=== PATIENT | female | born 2000 | race Caucasian/White ===

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

== ENCOUNTER 2019-10-09 13:34 | Outpatient (CLI) | payer OTHER ==
[2019-10-09 14:12] LABS: ALBUMIN 4.4 g/dL (3.2-5.5); BILIRUBIN,DIRECT 0.2 mg/dL (0.1-0.5); BILIRUBIN,TOTAL 1.2 mg/dL (0.2-1.0); TOTAL PROTEIN 7.7 g/dL (6.7-8.2)
== END 2019-10-09 13:35 | disposition home or self-care (01) ==
LOC: LAB 13:34
PROVIDERS: ATTEND Pediatrics
DX: G40.814 Lennox-Gastaut syndrome, intractable, without status epilepticus (principal)
CPT/HCPCS: 36415; 80076

== ENCOUNTER 2019-12-09 14:39 | Outpatient (CLI) | payer OTHER ==
[2019-12-09 14:56] LABS: BASOPHILS # (AUTO) 0.1 10^3/uL (0.0-0.1); BASOPHILS % (AUTO) 0.8 %; EOSINOPHILS # (AUTO) 0.3 10^3/uL (0.0-0.7); EOSINOPHILS % (AUTO) 4.5 %; LYMPHOCYTES # (AUTO) 1.9 10^3/uL (1.5-3.5); LYMPHOCYTES % (AUTO) 29.4 %; MEAN CORPUSCULAR HGB CONC 34.7 g/dL (32.0-36.0); MEAN CORPUSCULAR VOLUME 92.2 fL (81.0-99.0); MONOCYTES # (AUTO) 0.7 10^3/uL (0.0-1.0); MONOCYTES % (AUTO) 9.8 %; NEUTROPHILS # (AUTO) 3.7 10^3/uL (1.5-6.6); NEUTROPHILS % (AUTO) 55.3 %; PLT - PLATELET COUNT 206 10^3/uL (130-450); RED BLOOD COUNT 4.37 10^6/uL (4.20-5.40); RED CELL DISTRIBUTION WIDTH 12.5 % (12.0-15.0); WHITE BLOOD COUNT 6.6 x10^3/uL (4.8-10.8)
[2019-12-09 15:15] LABS: ALBUMIN 4.5 g/dL (3.2-5.5); ALBUMIN/GLOBULIN RATIO 1.6 (1.0-2.2); BILIRUBIN,TOTAL 0.7 mg/dL (0.2-1.0); CALCIUM 9.3 mg/dL (8.5-10.3); CREATININE 0.5 mg/dL (0.4-1.0); TOTAL PROTEIN 7.4 g/dL (6.7-8.2)
[2019-12-09 15:35] LABS: HCG,QUALITATIVE BLOOD NEGATIVE
== END 2019-12-09 14:40 | disposition home or self-care (01) ==
LOC: LAB 14:39
PROVIDERS: ATTEND Pediatrics
DX: G40.219 Localization-related (focal) (partial) symptomatic epilepsy and epileptic syndromes with complex partial seizures, intractable, without status epilepticus (principal)
CPT/HCPCS: 36415; 80053; 84703; 85025

== ENCOUNTER 2020-05-20 12:18 | Outpatient (CLI) | payer MEDICARE, MEDICAID ==
[2020-05-20 12:37] LABS: BASOPHILS % (AUTO) 0.7 %; EOSINOPHILS # (AUTO) 0.1 10^3/uL (0.0-0.7); EOSINOPHILS % (AUTO) 3.1 %; HGB - HEMOGLOBIN 13.7 g/dL (12.0-16.0); LYMPHOCYTES # (AUTO) 1.5 10^3/uL (1.5-3.5); LYMPHOCYTES % (AUTO) 31.8 %; MEAN CORPUSCULAR HEMOGLOBIN 32.6 pg (27.0-31.0); MEAN CORPUSCULAR HGB CONC 35.7 g/dL (32.0-36.0); MEAN CORPUSCULAR VOLUME 91.4 fL (81.0-99.0); MEAN PLATELET VOLUME 10.1 fL (7.9-10.8); MONOCYTES # (AUTO) 0.6 10^3/uL (0.0-1.0); MONOCYTES % (AUTO) 12.4 %; NEUTROPHILS # (AUTO) 2.4 10^3/uL (1.5-6.6); NEUTROPHILS % (AUTO) 51.8 %; PLT - PLATELET COUNT 169 10^3/uL (130-450); RED CELL DISTRIBUTION WIDTH 12.9 % (12.0-15.0); WHITE BLOOD COUNT 4.6 x10^3/uL (4.8-10.8)
[2020-05-20 12:54] LABS: ALBUMIN 4.3 g/dL (3.2-5.5); ALBUMIN/GLOBULIN RATIO 1.4 (1.0-2.2); BILIRUBIN,TOTAL 0.9 mg/dL (0.2-1.0); CALCIUM 9.4 mg/dL (8.5-10.3); CREATININE 0.4 mg/dL (0.4-1.0); TOTAL PROTEIN 7.3 g/dL (6.7-8.2)
== END 2020-05-20 12:19 | disposition home or self-care (01) ==
LOC: LAB 12:18
PROVIDERS: ATTEND Internal Medicine
DX: R63.0 Anorexia (principal); R40.0 Somnolence; R26.89 Other abnormalities of gait and mobility; E83.10 Disorder of iron metabolism, unspecified
CPT/HCPCS: 36415; 80053; 82607; 84443; 85025

== ENCOUNTER 2020-07-15 09:04 | Emergency (ER) | payer MEDICARE, MEDICAID ==
[2020-07-15 09:25] VITALS: BP 117/92
--- NOTE | 2020-07-15 09:38 | ED Physician Documentation ---
PD HPI HEAD INJURY - Stated complaint Stated Complaint: HEAD INJ - Chief complaint Chief Complaint: Laceration - History obtained from History obtained from: Patient - History of Present Illness Mechanism of head injury: Fell Where head injury occurred: Home Timing - onset: Today Pain level max: 0 Pain level now: 0 - Additional information Additional information: Patient is a 19-year-old female who presents to the emergency department after a fall out of bed today. She has severe mental impairment, she is accompanied by her mother. Mother states that the patient has seizures and has fallen and struck her head several times. She is acting like her normal self. Patient is chewing on a towel. Patient unable to give history. No vomiting. No changes to her medications. No recent illness Review of Systems Constitutional: denies: Fever, Chills PD PAST MEDICAL HISTORY - Past Medical History Cardiovascular: None Respiratory: None Endocrine/Autoimmune: None GI: None CELLAR HAND: None : None HEENT: None Psych: None Musculoskeletal: None Derm: None - Present Medications Home Medications: Ambulatory Orders Medication Instructions Recorded Confirmed Acetaminophen with Codeine 15 ml PO Q6H PRN #240 ml 02/05/17 [Acetaminophen-Codeine Solution] - Allergies Allergies/Adverse Reactions: Allergies Allergy/AdvReac Type Severity Reaction Status Date / Time divalproex sodium Allergy Hives Verified 07/15/20 09:24 [From Depakote] phenytoin sodium * Allergy Hives Verified 07/15/20 09:24 [From Dilantin] phenytoin sodium extended * Allergy Hives Verified 07/15/20 09:24 [From Dilantin] - Social History Does the pt smoke?: No Smoking Status: Never smoker Does the pt drink ETOH?: No Does the pt have substance abuse?: No - Immunizations Immunizations are current?: Yes - POLST Patient has POLST: No PD ED PE NORMAL - Vitals Vital signs reviewed: Yes - General General: No acute distress, Well developed/nourished, Other (Alert, at her normal baseline.) - HEENT HEENT: PERRL, EOMI, Moist mucous membranes, Other (6 cm scalp laceration. No scalp hematomas. No palpable skull fractures. Linear. Near the crown of the head) - Neck Neck: Supple, no meningeal sign - Cardiac Cardiac: RRR - Respiratory Respiratory: No respiratory distress, Clear bilaterally - Derm Derm: Warm and dry - Extremities Extremities: Normal ROM s pain - Neuro Neuro: Other (Alert, at her normal baseline) Results - Vitals Vitals: Vital Signs - 24 hr 07/15/20 09:20 Temperature 36.0 C L Heart Rate 95 Respiratory 16 Rate Blood Pressure 117/92 H O2 Saturation 95 Oxygen O2 Source Room air Procedures - Laceration (location) Scalp laceration Length in cm: 6 Wound type: Linear Neurovascular status: Sensory intact, Motor intact, Vascular intact Wound preparation: Irrigated copiously NS Skin layer closure: Lenard Other: Patient tolerated well, No complications, Neurovascular intact, Tetanus UTD PD MEDICAL DECISION MAKING - ED course Complexity details: considered differential, d/w family ED course: 19-year-old female with a scalp laceration. Has severe developmental delay. Mother states that the patient does not usually feel pain and does not require anesthetics for stapling of the scalp. Patient tolerated the stapling very well. No indication for head CT. Mother is comfortable without a head CT at this time. Warnings of infection and instructions on wound care given at bedside. Also counseled on how to minimize scarring. Mother counseled regarding signs and symptoms for which I believe and urgent re-evaluation would be necessary. Mother with good understanding of and agreement to plan and is comfortable going home at this time This document was made in part using voice recognition software. While efforts are made to proofread this document, sound alike and grammatical errors may occur. Departure - Departure Disposition: 01 Home, Self Care Clinical Impression: Scalp laceration Qualifiers: Encounter type: initial encounter Qualified Code(s): S01.01XA - Laceration without foreign body of scalp, initial encounter Condition: Good Instructions: ED Laceration Scalp Stitch Or Stap Follow-Up: Dionne Smith MD [Primary Care Provider] - Within 1 week Comments: Follow-up with her doctor in 10 to 14 days for staple removal. Return if she worsens. Keep the wound clean. Discharge Date/Time: 07/15/20 09:54
== END 2020-07-15 09:54 | disposition home or self-care (01) ==
LOC: ED 09:04
DX: S01.01XA Laceration without foreign body of scalp, initial encounter (principal); W06.XXXA Fall from bed, initial encounter; Z91.81 History of falling; R62.50 Unspecified lack of expected normal physiological development in childhood
CPT/HCPCS: 12002; 99281; 99282

== ENCOUNTER 2020-10-13 15:31 | Outpatient (CLI) | payer MEDICARE, MEDICAID ==
--- NOTE | 2020-10-13 16:40 | XRAY Report ---
PROCEDURE: Calcaneus LT INDICATIONS: ANTALGIC GAIT (NOT BEARING WF.ON HEEL) TECHNIQUE: Two views of the calcaneus were acquired. COMPARISON: None. FINDINGS: Bones: No fractures or dislocations. No suspicious bony lesions. Soft tissues: No suspicious calcifications. Achilles tendon appears normal. IMPRESSION: No trauma to the calcaneus is found. Normal alignment. Reviewed by: Roney Albert MD on 10/13/2020 4:38 PM PDT Approved by: Roney Albert MD on 10/13/2020 4:38 PM PDT Station ID: [id number]
--- NOTE | 2020-10-13 16:41 | XRAY Report ---
PROCEDURE: Ankle 3 View LT INDICATIONS: ANTALGIC GAIT (NOT BEARING WF.ON HEEL) TECHNIQUE: 3 views of the ankle were acquired. COMPARISON: Calcaneus plain film same date. FINDINGS: Bones: No fractures or dislocations. Ankle mortise is normally aligned. No suspicious bony lesions . Soft tissues: No tibiotalar joint effusion. Achilles tendon appears normal. IMPRESSION: No trauma found, source of current pain is not identified. Reviewed by: Roney Albert MD on 10/13/2020 4:39 PM PDT Approved by: Roney Albert MD on 10/13/2020 4:39 PM PDT Station ID: [id number]
== END 2020-10-13 15:32 | disposition home or self-care (01) ==
LOC: DI 15:31
PROVIDERS: ATTEND Internal Medicine
DX: R26.89 Other abnormalities of gait and mobility (principal)

== ENCOUNTER 2021-01-04 08:47 | Day surgery (SDC) | payer MEDICARE, MEDICAID ==
[2021-01-04] MEDS ORDERED: LACTATED RINGERS 1,000 ML IV ONE ×2 (09:09→11:25)
[2021-01-04] MEDS ORDERED: CEFAZOLIN SODIUM IN 0.9 % NACL 0 GM/0 ML BAG IV ONE (09:52)
--- NOTE | 2021-01-04 09:56 | ANESTHESIA ---
Pre-Anesthesia VS, & Labs - Diagnosis CP, seizure disorder, weight loss, poor nutrition - Procedure Placement of PEG tube Vital Signs: Temp Pulse Resp BP Pulse Ox 36.5 C 93 18 90/69 100 01/04/21 09:11 01/04/21 09:11 01/04/21 09:11 01/04/21 09:11 01/04/21 09:11 Height: 4 ft 10 in Weight (kg): 29 kg Body Mass Index: 13.4 BMI Classification: Underweight - NPO >8 hours - Is Patient ?: Not Applicable Home Medications and Allergies Home Medications: Ambulatory Orders Cannabidiol (Cbd) [Epidiolex] 8 mg PO BID 01/02/21 Fenfluramine HCl [Fintepla] 6 ml PO BID 01/02/21 clonazePAM [Clonazepam] 3 ml PO BID 01/02/21 Lacosamide [Vimpat] 14 ml PO BID 01/04/21 Cannabidiol (Cbd) [Epidiolex] 8 mg PO BID 01/02/21 Fenfluramine HCl [Fintepla] 6 ml PO BID 01/02/21 clonazePAM [Clonazepam] 3 ml PO BID 01/02/21 Lacosamide [Vimpat] 14 ml PO BID 01/04/21 Allergies/Adverse Reactions: Allergies Allergy/AdvReac Type Severity Reaction Status Date / Time divalproex sodium Allergy Hives Verified 07/15/20 09:24 [From Depakote] egg Allergy seizures Verified 01/02/21 13:23 milk Allergy seizures Verified 01/02/21 13:23 phenytoin sodium * Allergy Hives Verified 07/15/20 09:24 [From Dilantin] phenytoin sodium extended * Allergy Hives Verified 07/15/20 09:24 [From Dilantin] Anes History & Medical History - Anesthetic History Anesthesia Complications: reports: No previous complications - Medical History Cardiovascular: reports: None Pulmonary: reports: None Gastrointestinal: reports: None Urinary: reports: None Neuro: reports: Seizure disorder, Other (CP, Autism, non-verbal) Musculoskeletal: reports: Other (CP) Endocrine/Autoimmune: reports: None Blood Disorders: reports: None Skin: reports: None Smoking Status: Never smoker Psychosocial: reports: No issues indicated History of Cancer?: No - Surgical History Neurologic: reports: Other (vagal nerve stimulator) Exam General: Alert Dental: Other (unable to assess) Respiratory: Lungs clear, Normal breath sounds, No respiratory distress, No accessory muscle use Cardiovascular: Regular rate, Normal S1, Normal S2, No murmurs Mental/Cognitive Status: Normal for patient Plan Anesthesia Type: General, Total IV Consent for Procedure(s) Verified and Reviewed: Yes Code Status: Attempt Resuscitation ASA classification: 4-Incapacitating disease Is this case an emergency?: No
[2021-01-04] MEDS ORDERED: MORPHINE 2 MG/ML CARPUJECT IVP PRN (10:05)
[2021-01-04] MEDS ORDERED: NALOXONE 0.4 MG/ML VIAL IVP PRN (10:05)
[2021-01-04] MEDS ORDERED: fentaNYL 100 MCG/2 ML VIAL IVP PRN (10:05)
[2021-01-04] MEDS ORDERED: ATROPINE ABBOJECT 1 MG/10 ML SYRINGE IVP PRN (10:05)
[2021-01-04] MEDS ORDERED: ONDANSETRON 4 MG/2 ML VIAL IVP PRN (10:05)
[2021-01-04] MEDS ORDERED: HYDROmorphone 0.5 MG/0.5 ML SYRINGE IVP PRN (10:05)
[2021-01-04] MEDS ORDERED: ceFAZolin 1 GM VIAL ONE (10:09)
[2021-01-04] MEDS ORDERED: LIDOCAINE 2%-EPI 1:100000 20 ML MDV ONE (10:34)
[2021-01-04] MEDS ORDERED: MIDAZOLAM 2 MG/2 ML VIAL ONE (10:43)
[2021-01-04] MEDS ORDERED: LIDOCAINE 1% 50 ML MDV SUBQ ONE ×2 (10:59)
[2021-01-04] MEDS ORDERED: PROPOFOL 1000 MG/100 ML 1,000 MG/100 ML BOTTLE IV ONE (11:00)
[2021-01-04] MEDS ORDERED: LACTATED RINGERS 1,000 ML IV SCH ×2 (11:00→12:00)
[2021-01-04] MEDS ORDERED: ceFAZolin 1 GM in SODIUM CHLORIDE 0.9% MINIBAG 100 ML IV SCH (11:00)
[2021-01-04] MEDS ORDERED: CEFAZOLIN SODIUM IN 0.9 % NACL 2 GM/100 ML BAG IV ONE (11:00)
[2021-01-04] MEDS ORDERED: SODIUM CHLORIDE FLUSH 0.9% 10 ML SYRINGE IVP PRN (11:32)
--- NOTE | 2021-01-04 13:44 | Discharge Plan ---
Discharge Plan Problem Reviewed?: Yes Disposition: Home, Self Care Condition: Good Diet: Regular (she will need tube feeds to supplement her diet life long tube feeds greater than 90 days) Activity Restrictions: No Restrictions Shower Restrictions: No Health Concerns: cerebral palsy and malnutrition requiring tube feeds Plan of Treatment: peg tube placed and nutrition consult obtained Assessment: doing well after feeding tube placement Additional Instructions or Follow Up instructions: daily dressing care to tube feed site follow up [facility] in 2 weeks and as needed call with any concerns [phone] Follow-Up Care: Dietitian No Smoking: If you smoke, Please STOP! Call for help. Follow-up with: Dionne Smith MD [Primary Care Provider] - Yogesh Hare MD [Provider Admit Priv/Credential] -
--- NOTE | 2021-01-04 13:48 | DISCHARGE SUMMARY ---
"Discharge Summary Admit Date: 01/04/21 Discharge Date: 01/04/21 Discharging Provider: tino law Code Status: Attempt Resuscitation Discharge Facility Name: [facility] - DIAGNOSES Admission Diagnoses: cp and malnutrition Discharge Diagnoses with Status of Each Condition: home in stable condition - CONSULTS | PROCEDURES Consultations: nutrition Procedures: peg feeding tube placement - HOSPITAL COURSE Hospital Course: Tolerated peg tube placement well. Home after nutrition consult - ALLERGIES Allergies/Adverse Reactions: Allergies Allergy/AdvReac Type Severity Reaction Status Date / Time divalproex sodium Allergy Hives Verified 07/15/20 09:24 [From Depakote] egg Allergy seizures Verified 01/02/21 13:23 milk Allergy seizures Verified 01/02/21 13:23 phenytoin sodium * Allergy Hives Verified 07/15/20 09:24 [From Dilantin] phenytoin sodium extended * Allergy Hives Verified 07/15/20 09:24 [From Dilantin] - MEDICATIONS Home Medications: Ambulatory Orders Medication Instructions Recorded Confirmed Cannabidiol (Cbd) [Epidiolex] 8 mg PO BID 01/02/21 01/04/21 Fenfluramine HCl [Fintepla] 6 ml PO BID 01/02/21 01/04/21 clonazePAM [Clonazepam] 3 ml PO BID 01/02/21 01/04/21 Lacosamide [Vimpat] 14 ml PO BID 01/04/21 01/04/21 - PHYSICAL EXAM AT DISCHARGE General Appearance: positive: No acute distress Neck: positive: No JVD Respiratory: positive: No respiratory distress Abdomen: positive: Non-tender, No distention"
--- NOTE | 2021-01-04 14:09 | ANESTHESIA POST OP EVALUATION ---
Anesthesia Post Eval - Post Anesthesia Eval Vitals: Last Vital Signs Temp 36.5 C 01/04/21 12:30 Pulse 85 01/04/21 12:30 Resp 20 01/04/21 12:30 BP 114/69 01/04/21 12:15 Pulse Ox 100 01/04/21 12:30 CV Function Including HR & BP: Stable Pain Control: Satisfactory Nausea & Vomiting: Negative Mental Status: Baseline Respiratory Status: Airway Patent Hydration Status: Satisfactory Anesthesia Complications: None
[2021-01-04 14:13] VITALS: BP 121/89
[2021-01-04] MEDS ORDERED: SODIUM CHLORIDE FLUSH 0.9% 10 ML SYRINGE IVP SCH (17:00)
== END 2021-01-04 08:48 | disposition home or self-care (01) ==
LOC: SDS 08:47
PROVIDERS: ATTEND Surgery
PROC: 0DH63UZ Insertion of Feeding Device into Stomach, Percutaneous Approach (ICD-10-PCS; principal; 2021-01-04 11:00)
DX: E46 Unspecified protein-calorie malnutrition (principal); G40.909 Epilepsy, unspecified, not intractable, without status epilepticus; G80.9 Cerebral palsy, unspecified; F84.0 Autistic disorder; Z68.1 Body mass index [BMI] 19.9 or less, adult; Z20.822 Contact with and (suspected) exposure to COVID-19
CPT/HCPCS: 43246; 87635; J7120

== ENCOUNTER 2022-07-14 10:25 | Emergency (ER) | payer MEDICARE, MEDICAID ==
[2022-07-14 10:37] VITALS: BP 123/75
--- NOTE | 2022-07-14 10:46 | ED Physician Documentation ---
PD HPI SKIN - Stated complaint Stated Complaint: GT TUBE SMELL/REDNESS - Chief complaint Chief Complaint: Wound - History obtained from History obtained from: Patient - History of Present Illness Timing - onset: Yesterday Timing - details: Gradual onset, Still present Location: Abdomen (mom noted some redness around feeing tube site on abdomen for couple of days and then with some drainage that is malodorous last night into today.) Quality / character: Draining. No: Painful Associated symptoms: No: Fever Similar symptoms before: Has not had sx before Review of Systems Constitutional: denies: Fever Nose: denies: Rhinorrhea / runny nose, Congestion Throat: denies: Sore throat Respiratory: denies: Cough GI: denies: Abdominal Pain, Vomiting, Diarrhea PD PAST MEDICAL HISTORY - Past Medical History Past Medical History: Yes Cardiovascular: None Respiratory: None Neuro: Seizure disorder, Other Endocrine/Autoimmune: None GI: None SUPERVISOR VENEER: None : None HEENT: Other Psych: None Musculoskeletal: Other Derm: None - Past Surgical History Neuro: Other - Present Medications Home Medications: Ambulatory Orders Medication Instructions Recorded Confirmed Cannabidiol (Cbd) [Epidiolex] 8 mg PO BID 01/02/21 07/21/21 Fenfluramine HCl [Fintepla] 15 mg PO BID 01/02/21 07/21/21 clonazePAM [Clonazepam] 3 ml PO BID 01/02/21 07/21/21 Lacosamide [Vimpat] 8 mg PO BID 01/04/21 07/21/21 Fluconazole [Diflucan] 120 mg PO DAILY 5 Days #15 ml 07/14/22 Mupirocin 2% Oint [Bactroban 2% 1 applic TOP TID #15 gm 07/14/22 Oint] Nystatin Cream [Mycostatin Cream] 1 applic TOP BID 7 Days #15 gm 07/14/22 Sulfamethox/Trimet 200/40 Susp 20 ml PO BID 7 Days #280 ml 07/14/22 [Bactrim Susp] - Allergies Allergies/Adverse Reactions: Allergies Allergy/AdvReac Type Severity Reaction Status Date / Time divalproex sodium Allergy Hives Verified 07/14/22 10:37 [From Depakote] egg Allergy seizures Verified 07/14/22 10:37 milk Allergy seizures Verified 07/14/22 10:37 phenytoin sodium * Allergy Hives Verified 07/14/22 10:37 [From Dilantin] phenytoin sodium extended * Allergy Hives Verified 07/14/22 10:37 [From Dilantin] - Social History Does the pt smoke?: No Smoking Status: Never smoker Does the pt drink ETOH?: No Does the pt have substance abuse?: No - Immunizations Immunizations are current?: Yes - POLST Patient has POLST: No PD ED PE NORMAL - Vitals Vital signs reviewed: Yes - General General: No acute distress, Well developed/nourished - Abdomen Abdomen: Normal bowel sounds, Soft, Non tender, Non distended, Other (feeding tube exits normally. there is redness aorund the skin base of it, with demarceated edge and no fluctuance. there is faint drainage from around the tube that is yellow color with malodor. ) - Derm Derm: Normal color, Warm and dry Results - Vitals Vitals: Oxygen O2 Source Room air - Labs Labs: Microbiology 07/14/22 11:03 Wound Culture - Preliminary Abdomen Staphylococcus Aureus PD Medical Decision Making - ED course Complexity details: considered differential (has feeding tube that has some redness around the insertion hole and smellly drainage. no feeling of fluid collected underneath skin. got culture and will treat for bacterial but also appearance of yeast at skin edge. ), d/w patient, d/w family (caregiver) Departure - Departure Disposition: 01 Home, Self Care Clinical Impression: Abdominal infection Condition: Stable Record reviewed to determine appropriate education?: Yes Follow-Up: Dionne Smith MD [Primary Care Provider] - Prescriptions: Sulfamethox/Trimet 200/40 Susp [Bactrim Susp] 20 ml PO BID 7 Days #280 ml Mupirocin 2% Oint [Bactroban 2% Oint] 1 applic TOP TID #15 gm Fluconazole [Diflucan] 120 mg PO DAILY 5 Days #15 ml Nystatin Cream [Mycostatin Cream] 1 applic TOP BID 7 Days #15 gm Comments: We did do a culture of the site. This will result in a couple of days and tell us if there is a particular bacterial infection. It does look like a local infection into the soft tissue layer. I do not feel any fluid collection underneath. The skin has an appearance of a yeast infection. I would treat it with both antifungal and antibiotic for now and it could be a combination of both antifungal and secondary bacterial infection. Bactrim suspension twice daily for the next 7 days. Diflucan suspension daily for 5 days. I would also treat topically with nystatin antifungal and mupirocin antibiotic. Recheck if things are not clearing well with regard to the inflammation and redness and drainage over the next several days. We will call if we need to amend or change the antibiotic choice based on the culture. I sent your prescriptions to your preferred pharmacy. Discharge Date/Time: 07/14/22 12:03
[2022-07-14] MEDS ORDERED: SULFAMETHOX/TRIMETH 800/160 SUSP 20 ML PO STA (11:14)
[2022-07-14] MEDS ORDERED: TERBINAFINE 250 MG TABLET PO STA (11:14)
[2022-07-14] MEDS ORDERED: MUPIROCIN 2% OINT 1 GM TOP STA (11:15)
== END 2022-07-14 12:03 | disposition home or self-care (01) ==
LOC: ED 10:25
DX: B99.8 Other infectious disease (principal)
CPT/HCPCS: 87070; 87181; 87205; 99283; 99284; A9270